=== PATIENT | female | born 1985 | race Caucasian/White ===

== ENCOUNTER 2021-11-26 15:45 | Emergency (ER) | payer MEDICAID, SELFPAY ==
[2021-11-26 15:54] VITALS: BP 127/95; PULSE 96; RESP 16; TEMP 36; O2SAT 98
--- NOTE | 2021-11-26 15:54 | ED.GENADUL_ITS ---
Discharge Plan Disposition Patient Disposition: HOME Condition: Stable Discharge Details Clinical Impression: Ear pain, right, Rash Primary Care Provider: Norma Cage ED Provider: Bethanie Mujica Home Meds and New Rx's Prescriptions: New methylprednisolone [Medrol (Jose Francisco)] 4 mg tablets,dose pack See Rx Instructions .ROUTE .COMPLEX Qty: 21 0RF Rx Instructions: orally per package directions Continued cyclobenzaprine 10 mg Tablet 10 mg PO TID clonidine HCl 0.2 mg Tablet 0.2 mg PO QHS Discharge Instructions Instructions: Acute Rash (ED), Earache (ED) Additional Instructions: Drink plenty of fluids and get plenty of rest. Alternate tylenol and motrin as needed and directed for pain. Your ear pain may be due to a viral infection. A prescription for steroids has been sent electronically to your pharmacy to take as directed until finished. Your exam does not appear consistent with an acute bacterial infection of your ear but if your symptoms do not improve or worsen or you develop a significant persistent fever, you may need antibiotics for your right ear pain as you may be developing a bacterial ear infection. Your rash is reassuring and does not appear consistent with an infection or allergic reaction. The steroids you were given for your ear may improve your rash. Follow-up with your primary care doctor in 1 week. Return to the emergency department with any worsening or new concerning symptoms. Discharge Data Discharge Date/Time-TO BE ENTERED AT DEPARTURE: 11/26/21 16:41 Discharge Physician: Bethanie Mujica Medical Decision Making 35-year-old female presents with right ear pain for the past 2 days with a brief episode of vertigo and nausea today. Vertigo and nausea currently resolved. She also admits to a mildly painful rash to her left arm, upper back and left leg over the past few weeks. Vitals within normal limits. Patient appears comfortable and nontoxic. Her right TM notes a possible small clear/slightly yellow fluid collection without erythema, drainage or foreign body. Remainder of ENT exam within normal limits. She has small comedo/pinpoint papules noted to her left upper arm which appear likely consistent with a pimple or milia but do not appear consistent with cellulitis, scabies or shingles. Discussed that I do not see an indication for antibiotics for her right ear or rash. We will treat with a short course of Medrol Dosepak to cover potential ear inflammation and fluid collection and may also provide some relief of the rash. Advised to follow up with the primary care doctor for re-evaluation. Usual and customary return precautions given prior to discharge. Medical Records Medical records reviewed: Yes I reviewed the patient's medical records. HPI General Mode of arrival: ambulatory . Date/Time Provider Initiated Documentation: 11/26/21 15:47 . Limitations to Documentation: no limitations . Information obtained by: patient . HPI Narrative: Pt is a 35yo F who presents to the ED w/ a c/o right ear pain for the past few days with an brief episode of vertigo today. Patient states she has had vertigo in the past and states this felt similar and was brief and she was concerned about a possible ear infection. She also admits to a brief episode of nausea earlier. She denies any fever, headache, sore throat, ear drainage, chest pain, shortness of breath, difficulty breathing or vomiting. She also admits to a rash on her back, upper arm and left leg for the past 2-week. She denies any new soaps, lotions, detergents, bites, itching. She states the rash is painful at times. Related Data Home Medications Medication Instructions Recorded Confirmed clonidine HCl 0.2 mg tablet 0.2 mg PO QHS 11/26/21 11/26/21 cyclobenzaprine 10 mg tablet 10 mg PO TID 11/26/21 11/26/21 methylprednisolone 4 mg tablets in See Rx Instructions PO .COMPLEX 11/26/21 a dose pack (Medrol (Jose Francisco)) #21 dose pk Previous Rx's Medication Instructions Recorded methylprednisolone 4 mg tablets in See Rx Instructions PO .COMPLEX 11/26/21 a dose pack (Medrol (Jose Francisco)) #21 dose pk Allergies Allergy/AdvReac Type Severity Reaction Status Date / Time No Known Allergies Allergy Unverified 11/26/21 15:57 General Stated Complaint: EarProblem DANILO: 3 Review of Systems All systems reviewed & are unremarkable except as noted in HPI and below Constitutional Constitutional: Denies chills, Denies excessive sweating, Denies fatigue, Denies fever(s), Denies weakness and Denies weight loss Eyes Eyes: Reports system reviewed and no additional complaints, except as documented and Denies blurry vision ENT Ears, Nose, Mouth, and Throat: Reports vertigo, Reports otalgia, Denies nasal congestion, Denies sore throat and Denies throat swelling Cardiovascular Cardiovascular: Denies chest pain, Denies syncope, Denies rapid heart rate and Denies dyspnea Respiratory Respiratory: Denies chest congestion, Denies cough, Denies pain on inspiration and Denies dyspnea Gastrointestinal Gastrointestinal: Denies abdominal pain, Denies diarrhea and Denies vomiting Genitourinary Genitourinary: Denies hematuria, Denies dysuria and Denies flank pain Musculoskeletal Musculoskeletal: Denies back pain and Denies joint swelling Integumentary/Breasts Skin/Breast: Denies lesions and Reports rash Neurologic Neurologic: Denies behavioral changes, Denies confusion, Reports vertigo, Denies syncope, Denies localized weakness and Denies weakness Psychiatric Psychiatric: Denies behavioral changes, Denies confusion and Denies depression Endocrine Endocrine: Denies excessive sweating and Denies fatigue Hematologic/Lymphatic Hematologic/Lymphatic: Denies easy bruising and Denies lymphadenopathy Allergic/Immunologic Allergic/Immunologic: Denies throat swelling PFSH All Active Problems (Updated 11/26/21 @ 16:21 by Bethanie Mujica DO) Ear pain, right (Acute) Rash (Acute) Medical History (Updated 11/26/21 @ 16:21 by Bethanie Mujica DO) Bipolar affective disorder PTSD (post-traumatic stress disorder) Tic Surgical History (Updated 11/26/21 @ 16:21 by Bethanie Mujica DO) No significant past surgical history Social History Smoking/Tobacco Use Status: Current every day Tobacco Type: cigarettes Smoking risk assessment performed?: Yes Alcohol Intake: current Alcohol Intake frequency: 0-2 drinks per day Alcohol type: beer Drug use: Never Substance use type: does not use Do you feel safe at home: Yes Do you feel safe in your relationship?: Yes Exam Const General: cooperative and healthy appearing Orientation: alert, awake and oriented x3 HENMT Head: normal to inspection Ears: hearing grossly normal bilaterally, external ears normal, EAC's normal, mastoids normal and other (questionable minimal clear/yellow effusion behind R TM) General nose exam: external nose normal Face and sinus: normal facial exam Mouth: oral mucosae normal Teeth and gingiva: dentition normal Throat: posterior oropharynx normal Eyes General: appearance normal, both eyes and all related structures Eyelids: eyelids normal Pupils: PERRL EOM: EOM intact bilaterally Neck Neck: normal visual inspection Lymphatic: no lymphadenopathy noted Chest Chest: normal inspection of the chest Resp Effort & Inspection: normal respiratory effort and able to speak in complete sentences Auscultation: clear to auscultation bilaterally Cardio Rate: regular rate Rhythm: regular rhythm GI Inspection: normal to inspection Palpation: soft, not firm, no guarding, no hepatosplenomegaly, no masses and nontender Auscultation: normal bowel sounds Back/Spine/Pelvis Back: no CVA tenderness Neuro General: patient alert and patient awake Cognition: normal cognition Speech: speech normal Gait: normal gait Motor: muscle tone normal throughout Sensory Exam: no sensory deficits noted Extrem General: full ROM and capillary refill normal Shoulder/upper arm images: 1. Scattered pinpoint erythematous papules noted to L upper arm. No urticaria, vesicles, abscess, ecchymoses. Psych Appearance: grossly normal Mental Status: mental status grossly normal Speech and Movement: speech and movement normal Affect: normal affect Thought Process: normal
== END 2021-11-26 16:41 | disposition home or self-care (01) ==
PROVIDERS: Emergency Provider Physician Assistant; PCP Nurse Practitioner
DX: H92.01 Otalgia, right ear; R21 Rash and other nonspecific skin eruption
CPT/HCPCS: 99283